=== PATIENT | male | born 1995 | race Caucasian/White ===

== ENCOUNTER → 2018-01-21 12:09 | Outpatient (CLI) | payer BC, SELFPAY ==
--- NOTE | 2018-01-21 12:15 | ECHOD_ITS ---
Reason For Study: Chest pain Procedure This was a 2D Doppler, Color Flow transthoracic echocardiogram. Exam performed in department. Left Ventricle Normal size and thickness. The estimated ejection fraction is 65 %. Normal diastology for age. No regional wall motion abnormalities noted. Right Ventricle Normal size and thickness. Normal systolic function. Atria Normal left atrium. Normal right atrium. Normal atrial septum. Mitral Valve The mitral valve is structurally normal. No prolapse or stenosis seen. Tricuspid Valve Normal tricuspid valve. Unable to estimate RV systolic pressure/pulmonary artery pressure due to technically difficult study. Aortic Valve Trisinus/trileaflet aortic valve. Normal aortic valve. Pulmonic Valve Normal pulmonic valve. Great Vessels Normal aortic root. Normal arch. Normal inferior vena cava. Inferior vena cava collapse with sniff. Pericardium/Pleural No pericardial effusion. MMode/2D Measurements & Calculations LVIDd: 5.0 cm IVSd: 0.99 cm Ao root diam: 2.9 cm LVIDs: 3.1 cm LVPWd: 1.1 cm LA dimension: 3.5 cm RVDd: 3.4 cm FS: 38.4 % LAV(MOD-bp): 45.0 ml LA A4 area: 17.3 cm2 RA A4 area: 14.9 cm2 LAV(MOD-bp) Indexed: 18.2 ml/m2 LAV(MOD-sp2): 37.0 ml LAV(MOD-sp4): 47.9 ml Doppler Measurements & Calculations MV E max kyle: 86.1 cm/sec Lat Peak E' Kyle: 18.1 cm/sec Med Peak E' Kyle: 13.4 cm/sec MV A max kyle: 58.9 cm/sec E/E' lat: 4.8 E/E' med: 6.4 MV E/A: 1.5 Ao V2 max: 126.7 cm/sec LV V1 max: 106.4 cm/sec PA V2 max: 110.1 cm/sec Ao max P.4 mmHg LV V1 max P.5 mmHg Interpretation Summary The estimated ejection fraction is 65 %. Normal diastology for age. Unable to estimate RV systolic pressure/pulmonary artery pressure due to technically difficult study. There is no comparison study available. Ordering Physician: Kalpesh Andrade Referring Physician: Jordy Henao M.D. Performed By: Lisa Jordan RDCS
--- NOTE | 2018-01-21 16:59 | STRESSREP ---
Stress Test Report Treadmill EKG: Resting EKG: Normal sinus rhythm, normal intervals, no evidence of previous myocardial infarction. Treadmill EKG: The patient exercise according to Willy protocol for 12 minutes and 30 seconds achieving a maximum workload of 14.3 0 METS. Resting heart rate was initially 84 beats a minute theresa to max of 1 93 bpm which represents 96% of the maximal age bracket heart rate. Resting blood pressure was 144/82 and theresa to maximum of 172/68. Test was terminated due to leg discomfort. During exercise the patient's heart rate increased as expected. Patient had no dynamic EKG changes to suggest ischemia. No arrhythmias noted. Conclusions normal adequate treadmill EKG. Negative for ischemia by EKG criteria. No anginal symptoms noted. No arrhythmias noted. Appropriate blood pressure response to exercise. Average exercise capacity for age. Test terminated due to leg discomfort. Patient tolerated the procedure well. No complications.
== END ==
PROVIDERS: Family Provider Family Medicine; PCP Family Medicine; Visit Provider Preventive Medicine Occupational Medicine
DX: R07.9 Chest pain, unspecified (principal); R06.2 Wheezing; R06.02 Shortness of breath
CPT/HCPCS: 93017; 93306

== ENCOUNTER 2023-07-01 18:16 | Emergency (ER) | payer OTHER, SELFPAY ==
[2023-07-01 18:17] VITALS: BP 150/95; PULSE 89; RESP 18; TEMP 36.6; O2SAT 99; BMI 31.4
--- NOTE | 2023-07-01 18:26 | EKG12_ITS ---
Test Reason : CP Blood Pressure : / mmHG Vent. Rate : 092 BPM Atrial Rate : 092 BPM P-R Int : 150 ms QRS Dur : 102 ms QT Int : 354 ms P-R-T Axes : 073 076 060 degrees QTc Int : 437 ms Normal sinus rhythm Normal ECG Confirmed by ELIZABETH GARCIA ([id number]), magazine editor KERRIE MEMBRENO ([id number]) on 08/07/2023 2:20:03 PM Referred By: STEPHANIE Confirmed By:ELIZABETH GARCIA
[2023-07-01 19:51] VITALS: BP 123/74; BP 130/77; BP 135/86; PULSE 77; PULSE 85
[2023-07-01 20:01] VITALS: BP 135/86; PULSE 85; RESP 16; O2SAT 99
--- NOTE | 2023-07-01 20:18 | EDS_ITS ---
HPI History of Present Illness Chief Complaint: Chest Pain Informant: patient Narrative Narrative: Patient is a 28-year-old male with history of what sounds like reactive airway, intermittent episodes of chest pain presenting with worsening chest pain. Patient states he has pain around his right anterior chest/shoulder and then up into his neck. He states he gets intermittent episodes of pain that are sharp in his chest rating to his back and into his neck. It seems to be worse with movement of his shoulder. States the pain lasted no more than 60 seconds at a time. Issues regarding the past 2 days. Denies any associated shortness of breath difficulty breathing. She notes that his shortness of breath which she saw his PCP for has been doing better. Finally he notes that he has been feeling a little lightheaded with some going on for about 2 months. He also notes he is been having some mild intermittent headaches. Denies any episodes of syncope. Notes that he does work at a [employer]. Has a family history of coronary artery disease but at an older age. Denies any swelling of his legs. Denies any hormonal use. Denies any recent travel. Denies a history of DVT or PE. No other complaints or concerns at this time. Not taking anything for symptoms prior to arrival. [facility] Medical History no medical history Allergy/AdvReac Type Severity Reaction Status Date / Time No Known Allergies Allergy Verified 07/01/23 18:19 Social History Smoking Status: Never smoker [facility] ED Constitutional Constitutional ED: Reports other Details: Lightheaded ; Denies chills or fever(s) Cardiovascular Cardiovascular: Reports chest pain; Denies palpitations or racing heartbeat Respiratory/Chest Respiratory/Chest: Reports dyspnea; Denies cough or dyspnea on exertion Gastrointestinal Gastrointestinal: Denies abdominal pain, nausea or vomiting Musculoskeletal Musculoskeletal: Denies arthralgias or myalgias Integumentary Denies rash Neurologic Neurologic: Reports headache(s); Denies weakness Psychiatric Psychiatric: Denies anxiety EXAM Physical Exam Const Vital Signs: 07/01/23 18:17 07/01/23 19:51 07/01/23 20:01 Temperature 97.8 F Temperature Source Temporal Pulse Rate 89 85 Pulse Rate [Lying] 77 Pulse Rate [Standing (for 1 minute prior to obtaining)] 85 Respiratory Rate 18 16 Blood Pressure 150/95 H 135/86 H Blood Pressure [Lying] 123/74 H Blood Pressure [Sitting (for 1 minute prior to obtaining)] 130/77 H Blood Pressure [Standing (for 1 minute prior to obtaining)] 135/86 H Blood Pressure Mean 113 102 Blood Pressure Mean [Lying] 90 Blood Pressure Mean [Sitting (for 1 minute prior to obtaining)] 94 Blood Pressure Mean [Standing (for 1 minute prior to obtaining)] 102 Pulse Ox 99 99 Oxygen Delivery Method Room Air Room Air Positive well nourished and well developed General Appearance ED: well developed and NAD HEENT Reports moist mucous membranes Eyes PERRL and EOMs intact bilaterally Eyes Narrative: Slight serous effusions with air-fluid level behind bilateral tympanic membranes. No associated erythema, bulging or retraction of the eardrums. Neck supple Chest Wall inspection of chest normal and palpation of chest normal Chest: Negative for tenderness Resp normal respiratory effort and clear to auscultation bilaterally Cardio regular rate, regular rhythm and no murmurs Extremity normal to inspection Extremity Narrative: Patient has slight increase of pain with internal rotation of outstretched right upper extremity General Extremety ED: Negative for edema General Extremity: Negative for edema Neuro oriented x3 Sensorium / Orientation: awake and alert Motor Exam: Negative for general weakness Psych mental status grossly normal Skin no rashes or lesions noted MDM MDM MDM Narrative Medical decision making narrative: Patient is evaluated for chest pain. The pain really seems muscle skeletal. It seems to be coming from his shoulder into his pec muscles and up into his neck. He is PE RC negative. His EKG is normal sinus rhythm. His significant other goes on to tell me that he did recently start working out his upper extremities. Recommend NSAID therapy for this. As far as his dizziness he does have signs of serious effusions bilaterally. I suspect that might be causing his vague dizziness and intermittent headaches. Patient tells me that he was previously on Flonase and an [id number] allergy medicine and it was helping but he stopped taking it. He has some chronic rhinorrhea. He is working on following up outpatient with an etl analyst developer. I encouraged him to get back on the Flonase and Zyrtec. Orthostatics are obtained which are normal. Patient states he recently had a chest x-ray at [facility]. Given that he is not hypoxic, has clear breath sounds and does not have pleuritic pain/concerns for pneumonia, pneumothorax or signs of fluid overload/heart failure/cardiac tamponade I do not think he requires a chest x-ray. He is agreeable with this. Is given referral outpatient for orthopedics as I do think his symptoms are more muscular in nature. Given return precautions. Discharged home in stable condition. Patient is offered analgesia in the emergency room but declines. Rhythm Strip Rhythm Strip: Sinus Rhythm Rate: 92 Ectopy: None EKG Initial EKG: Attestation: I personally reviewed and interpreted this EKG as follows: Interpretation: Sinus Rhythm Comments: Normal sinus rhythm at a rate of 92 bpm Normal axis Normal intervals Normal ST segment Discharge Plan Triage Chief Complaint: Chest Pain ED Provider: Marsha Brenner Dx/Rx/DC Orders Clinical Impression: ETD (eustachian tube dysfunction), Chest wall pain Instructions: ED Earache Without Infection (Adult), ED Chest Wall Strain Primary Care Provider: Yenny Tena Referrals: Yenny Tena DO [Primary Care Provider] - Chauncey Villanueva DO [Med Staff - Active Staff] - As Needed Activity Restrictions/Additional Instructions: Your EKG and vital signs were normal in the emergency room. I suspect the pain in your chest and neck is more associated with the muscles associate with your shoulder/rotator cuff. You been given referral for orthopedics for follow-up. I do recommend conservative management with ice, rest and anti-inflammatory such as ibuprofen. In addition you do have fluid behind your ears and I recommend restarting daily Flonase and an jygi-pjs-[id number] allergy medicine such as Zyrtec. Continue to follow-up with etl analyst developer as we discussed. If you pass out, have a progression of your symptoms, difficulty breathing or further concerns please return to the emergency room. At this time I think it is safe for you to continue to follow-up outpatient. Disposition Disposition: Home, Self Care
== END 2023-07-01 20:43 | disposition home or self-care (01) ==
PROVIDERS: Emergency Provider Emergency Medicine; Visit Provider Emergency Medicine
DX: H69.80 Other specified disorders of Eustachian tube, unspecified ear (principal); R07.89 Other chest pain
CPT/HCPCS: 93005; 99283

== ENCOUNTER 2025-05-16 20:21 | Emergency (ER) | payer BC, SELFPAY ==
[2025-05-16 20:22] VITALS: BP 176/109; PULSE 85; RESP 16; TEMP 36.6; O2SAT 98; BMI 31.8
[2025-05-16 20:24] VITALS: BP 181/89; O2SAT 99
--- NOTE | 2025-05-16 20:24 | EKG12_ITS ---
Test Reason : CP Blood Pressure : */* mmHG Vent. Rate : 80 BPM Atrial Rate : 80 BPM P-R Int : 152 ms QRS Dur : 104 ms QT Int : 374 ms P-R-T Axes : 58 48 41 degrees QTcB Int : 431 ms Normal sinus rhythm with sinus arrhythmia Normal ECG Confirmed by MARIOLA HAMMER, JASMINA ([id number]), business editor BHAVIN ANG ([id number]) on 05/17/2025 1:35:44 PM Referred By: ANTONIO Confirmed By: JASMINA GARNETT MD
--- NOTE | 2025-05-16 20:24 | EKG12_ITS ---
Test Reason : CP Blood Pressure : */* mmHG Vent. Rate : 80 BPM Atrial Rate : 80 BPM P-R Int : 152 ms QRS Dur : 104 ms QT Int : 374 ms P-R-T Axes : 58 48 41 degrees QTcB Int : 431 ms Normal sinus rhythm with sinus arrhythmia Normal ECG Confirmed by MARIOLA HAMMER, JASMINA ([id number]), photo editor BHAVIN ANG ([id number]) on 05/17/2025 1:35:44 PM Referred By: ANTONIO Confirmed By: JASMINA GARNETT MD
--- NOTE | 2025-05-16 20:50 | RAD_ITS ---
PROCEDURE: CHEST PA AND LATERAL 05/16/2025 REASON FOR EXAM: CHEST PAIN TECHNIQUE: CHEST PA AND LATERAL COMPARISON: None. FINDINGS: The heart is normal in size. The lungs are clear. No pleural effusion or pneumothorax. No acute osseous abnormalities. RAD/Chest PA and Lateral IMPRESSION: NO ACUTE FINDINGS. Reading Location: [place] [id number]
--- NOTE | 2025-05-16 20:50 | RAD_ITS ---
PROCEDURE: CHEST PA AND LATERAL 05/16/2025 REASON FOR EXAM: CHEST PAIN TECHNIQUE: CHEST PA AND LATERAL COMPARISON: None. FINDINGS: The heart is normal in size. The lungs are clear. No pleural effusion or pneumothorax. No acute osseous abnormalities. RAD/Chest PA and Lateral IMPRESSION: NO ACUTE FINDINGS. Reading Location: [place] [id number]
[2025-05-16 21:01] LABS: Hematocrit 42.2 % (40-54); Hemoglobin 14.7 g/dL (13.0-16.5); Immature Granulocytes Count 0.010 X10^3/uL (0.0-0.0); Mean Corp Hgb Conc 34.8 g/dL (32-36); Mean Corpuscular Volume 87.4 fL (80-94); Mean Platelet Vol. 9.6 fl (6.2-12.0); NRBC Flagged by Analyzer 0 % (0-5); Platelet Count 246 K/mm3 (150-450); RBC Distribution Width CV 12.4 % (11.6-14.6); RBC Distribution Width SD 39.8 fl (35.1-43.9); Red Blood Count 4.83 M/mm3 (4.6-6.2); White Blood Count 9.0 K/mm3 (4.4-11.0)
[2025-05-16 21:11] LABS: Anion Gap 11 (5-15); BUN 12 mg/dL (4-19); BUN/Creat Ratio 12.2 RATIO (10-20); Calcium,Total 9.4 mg/dL (7.6-11.0); Carbon Dioxide 23.7 mmol/L (21.0-32.0); Chloride 104 mmol/L (98-108); Estimated Creatinine Clearance 166.39 ml/min (50-250); Glucose 98 mg/dL (70-99); Potassium 3.8 mmol/L (3.3-5.1)
[2025-05-16 21:12] VITALS: BP 163/75; PULSE 80; RESP 16; O2SAT 99
--- NOTE | 2025-05-16 21:17 | EDS_ITS ---
HPI History of Present Illness Chief Complaint: Chest Pain Informant: patient Onset/Context/Timing Onset: Days (3-4) Activity at onset: sudden Timing: Intermittent Quality: Positive for Pressure Location: Substernal and - (Left arm) Worsened By: Nothing Relieved By: Nothing Narrative Narrative: Patient presents with chest pain that has been intermittent over the last 3 to 4 days. Patient states it comes on rather suddenly. Patient describes it as a pressure. Patient states the pain is over the substernal area and radiates into his left arm. Patient states nothing makes it better nothing makes it worse. Patient admits to some shortness of breath and lightheadedness. Patient also admits to some palpitations. Patient denies any nausea or vomiting. Patient denies any cough or diaphoresis. Patient denies any fevers or chills. CVD Risk Factors: Negative for Hypertension, Diabetes, Hypercholesterolemia, Family History 1' </=55 or Smoking PE Risk Factors: Negative for Recent Travel/Surgery, Recent Immobilization, Prior DVT or PE, Cancer or OCP + Smoking + >/=35 PFSH PFSH Medical History no medical history no medical history Home Medications ?Medication ?Instructions ?Recorded ?Last Taken ?Type NK 05/16/25 Unknown History Allergy/AdvReac Type Severity Reaction Status Date / Time No Known Allergies Allergy Verified 05/16/25 20:22 Surgical History no surgical history no surgical history Social History Smoking Status: Never smoker [facility] ED Constitutional Constitutional ED: Denies chills or fever(s) Eyes Eyes: Denies blurry vision or change in vision ENT ENT ED: Denies rhinorrhea or sore throat Cardiovascular Cardiovascular: Reports chest pain and palpitations Respiratory/Chest Respiratory/Chest: Reports dyspnea; Denies cough Gastrointestinal Gastrointestinal: Denies nausea or vomiting Genitourinary Genitourinary ED: Denies dysuria or hematuria Musculoskeletal Musculoskeletal: Reports back pain; Denies neck pain Integumentary Denies abscess or rash Neurologic Neurologic: Reports headache(s); Denies weakness Allergic/Immunologic Allergic/Immunologic ED: Denies mouth swelling or urticaria EXAM Physical Exam Const Vital Signs: 05/16/25 20:22 05/16/25 20:24 05/16/25 20:24 Temperature 98 F Temperature Source Oral Pulse Rate 85 Respiratory Rate 16 Respiratory Effort Blood Pressure 176/109 H 181/89 H Blood Pressure Mean 131 119 Pulse Ox 98 99 Oxygen Delivery Method Room Air Room Air 05/16/25 21:10 05/16/25 21:12 05/16/25 22:00 Temperature 98.1 F Temperature Source Oral Pulse Rate 80 73 Respiratory Rate 16 22 H Respiratory Effort Normal Blood Pressure 163/75 H 152/83 H Blood Pressure Mean 104 106 Pulse Ox 99 98 Oxygen Delivery Method Room Air Room Air 05/16/25 23:00 05/16/25 23:56 Temperature 98.1 F 98.1 F Temperature Source Oral Pulse Rate 72 66 Respiratory Rate 15 16 Respiratory Effort Blood Pressure 134/75 H 116/61 Blood Pressure Mean 94 79 Pulse Ox 99 98 Oxygen Delivery Method Room Air Positive well nourished and well developed General Appearance ED: well developed and NAD HEENT Reports moist mucous membranes Neck supple and no JVD Chest Wall palpation of chest normal Resp normal respiratory effort and clear to auscultation bilaterally Cardio regular rate and regular rhythm GI soft to palpation, non-tender and non-distended Neuro oriented x3, CN's II-XII intact bilaterally and no sensory deficits noted Sensorium / Orientation: awake and alert Motor Exam: strength 5/5 throughout Psych mental status grossly normal Heart Score History: Slightly/Non-Suspicious ECG: Normal Age: </= 45 years Risk Factors: No Risk Factors Troponin: </= Normal Limit Score: 0 MDM MDM MDM Narrative Medical decision making narrative: Differential diagnosis includes cardiac dysrhythmia, cardiac ischemia, pneumonia, bronchitis, gastroesophageal reflux disease, and anxiety. EKG will be obtained to assess for cardiac dysrhythmia and cardiac ischemia. Chest x-ray will be obtained to assess for pneumonia and bronchitis. CBC will be obtained to assess for leukocytosis and anemia. Basic metabolic profile will be obtained to assess for electrolyte abnormality renal function. High-sensitivity troponin will be obtained to assess for cardiac ischemia. History & Record Review Additional record(s) reviewed:: Prior ED visit Lab Data Attestation: I reviewed the patient's lab results. Lab results narrative: CBC was reviewed and was within normal limits. Basic metabolic profile was reviewed and was within normal limits. Initial high-sensitivity troponin was repeated and was less than 6. Repeat high-sensitivity troponin was reviewed and was less than 6. Labs: Laboratory Results - last 24 hr 06/30/25 06/30/25 20:29 22:20 WBC 9.0 RBC 4.83 Hgb 14.7 Hct 42.2 MCV 87.4 MCH 30.4 MCHC 34.8 RDW Std Deviation 39.8 RDW Coeff of Brayden 12.4 Plt Count 246 MPV 9.6 Immature Gran % (Auto) 0.100 Neut % (Auto) 59.8 Lymph % (Auto) 28.8 Gregg % (Auto) 9.1 Eos % (Auto) 2.0 Baso % (Auto) 0.2 Absolute Neuts (auto) 5.4 Absolute Lymphs (auto) 2.59 Nucleated RBC % 0 Sodium 139 Potassium 3.8 Chloride 104 Carbon Dioxide 23.7 Anion Gap 11 BUN 12 Creatinine 0.98 Estim Creat Clear Calc 166.39 Est GFR (MDRD) Non-Af 108 BUN/Creatinine Ratio 12.2 Glucose 98 Calcium 9.4 Troponin T High Sens < 6 Troponin T Hi Sens 2 Hr < 6 Radiography Chest X-Ray - ED: 2 View, Read by ED Physician, Read by Radiologist and No Acute Disease Diagnostic Testing: Clinical Impression(s) from Imaging Studies Chest X-Ray 05/16/25 20:50 IMPRESSION: NO ACUTE FINDINGS. Reading Location: [place] [id number] PA and lateral chest x-ray was obtained. There are 2 views. On my independent interpretation, lung herrera are clear. There is normal cardiac silhouette. Bony thorax is normal. There is no acute process noted. Radiologist also interpreted the x-ray and agrees. EKG Initial EKG: Attestation: I personally reviewed and interpreted this EKG as follows: Interpretation: Sinus Rhythm (80) and No Acute Injury Pattern Comments: EKG was obtained. On my independent interpretation, it showed a normal sinus rhythm with a rate of 80. SC interval, QRS interval, and QTc intervals were all normal. [place] was normal. There are no acute ST or T wave changes. Prior EKG tracings: available for review Prior: Unchanged (07/01/2023) Treatment and Re-Evaluation :: Patient was advised of his findings. Patient has a HEART score of 0. Patient was advised that this is low risk for acute cardiac event. Patient was instructed to follow-up with his primary care physician for further evaluation in 5 to 7 days. Patient was instructed to return if worse in any way. Patient understood and was agreeable with the plan. All questions were answered. Discharge Plan Triage Chief Complaint: Chest Pain ED Provider: Víctor Best Dx/Rx/DC Orders Clinical Impression: Chest pain, Elevated blood pressure reading without diagnosis of hypertension Instructions: ED Chest Pain, Uncertain Cause Prescriptions: No Action NK Primary Care Provider: Yenny Tena Referrals: Yenny Tena, [Primary Care Provider] - 5-7 Days Print Language: Citizen Of [place] Disposition Disposition: Home, Self Care Discharge Date/Time: 05/17/25 00:06
[2025-05-16 21:19] LABS: Troponin T High Sensitivity < 6 ng/L (<=22)
[2025-05-16 22:00] VITALS: BP 152/83; PULSE 73; RESP 22; TEMP 36.7; O2SAT 98
[2025-05-16 23:00] VITALS: BP 134/75; PULSE 72; RESP 15; TEMP 36.7; O2SAT 99
[2025-05-16 23:26] LABS: Troponin T High Sens 2 HR < 6 ng/L (<=22)
[2025-05-16 23:56] VITALS: BP 116/61; PULSE 66; RESP 16; TEMP 36.7; O2SAT 98
== END 2025-05-17 00:06 | disposition home or self-care (01) ==
PROVIDERS: Emergency Provider Emergency Medicine; Visit Provider Emergency Medicine
DX: R07.89 Other chest pain (principal); R00.2 Palpitations; R06.02 Shortness of breath; R42 Dizziness and giddiness; R03.0 Elevated blood-pressure reading, without diagnosis of hypertension
CPT/HCPCS: 71046; 80048; 84484; 85025; 93005; 99284; A4216

== ENCOUNTER 2025-08-28 12:23 | Emergency (ER) | payer BC, SELFPAY ==
[2025-08-28 12:24] VITALS: BP 118/104; PULSE 81; RESP 16; TEMP 36.6; O2SAT 98; BMI 30.9
--- NOTE | 2025-08-28 12:37 | ED.VIS.CHEST ---
HPI History of Present Illness Chief Complaint: Chest Pain Narrative Narrative: Patient is a 30-year-old male presenting to the emergency department for intermittent left-sided chest pain, shoulder blade pain and left antecubital pain. Patient states that he is had this before associated with his anxiety. He denies any family history of sudden cardiac . States he has been diagnosed with a cardiac murmur in the past but denies any other cardiac history. Denies any diabetes, hypertension or hypercholesterolemia diagnosis. Patient states the symptoms have been going on for the past 3 days more frequently but has had them for months associated with his anxiety. The only symptom he is endorsing on evaluation here is left antecubital pain. However states that the past 3 days he has had intermittent left-sided chest pain and left shoulder blade pain. Endorses intermittent shortness of breath as well. Denies fever, chills, cough, diaphoresis, vomiting, abdominal pain, lower extremity edema. Denies any history of DVT or PE. Recently traveled to [place] which was a 10-hour drive about 3 weeks ago. PFSH PFS Medical History Anxiety Non-smoker Home Medications ?Medication ?Instructions ?Recorded ?Last Taken ?Type NK 05/16/25 Unknown History Allergy/AdvReac Type Severity Reaction Status Date / Time No Known Allergies Allergy Verified 08/28/25 12:26 Social History Smoking Status: Never smoker ROS ROS ED ROS Narrative See HPI EXAM Physical Exam Narrative Exam Narrative: Vital signs: Reviewed General: Alert and oriented x 3. No acute distress HEENT: Head is normocephalic and atraumatic, sinuses nontender, pupils equal round and reactive. Nares are patent. Oropharynx and throat exams normal. Neck: Supple without lymphadenopathy nontender Cardiovascular: Regular rate and rhythm, no murmurs. No rubs or gallops. Normal S1 and S2. Radial and DP pulses are 2+ and symmetric throughout. Respiratory: Clear to auscultation bilaterally. No wheezes, rales, rhonchi Chest: No reproducible chest pain on exam Abdominal: Soft and nontender. Normal bowel sounds. No guarding or rebound. Nonsurgical abdomen Extremities: No lower extremity edema. No tenderness. No bruising. Normal range of motion. Normal sensation. Skin: No rash or redness. Neurological: Cranial nerves II through XII are grossly intact. Normal strength and sensation. Normal cerebellar function The rest of the physical exam is unremarkable Const Vital Signs: 08/28/25 12:24 08/28/25 12:47 08/28/25 13:17 Temperature 97.8 F Temperature Source Oral Pulse Rate 81 77 Respiratory Rate 16 17 Respiratory Effort Normal Blood Pressure 118/104 H 146/78 H Blood Pressure Mean 108 100 Pulse Ox 98 99 Oxygen Delivery Method Room Air Room Air 08/28/25 14:00 08/28/25 15:09 Temperature 97.8 F Temperature Source Pulse Rate 58 L 58 L Respiratory Rate 18 18 Respiratory Effort Blood Pressure 136/89 H 136/89 H Blood Pressure Mean 104 104 Pulse Ox 99 Oxygen Delivery Method Room Air MDM MDM MDM Narrative Medical decision making narrative: Patient is a 30-year-old male presenting to emergency department with intermittent left-sided chest pain, shoulder blade pain. Patient was seen and examined. Vitals are stable. Patient resting bed comfortably no acute distress. Differential includes but is not limited to: ACS, pneumonia, pneumothorax, less likely PE or aortic pathology however with patient's recent travel we will obtain a D-dimer EKG shows normal sinus rhythm with a sinus arrhythmia. There is no ischemic changes noted. No abnormal T wave inversions. CBC with no leukocytosis and normal hemoglobin. BMP with no significant abnormalities. Troponin and reflex are both below 6. D-dimer is negative. Chest x-ray was reviewed by myself. No opacities, pneumothorax or wide mediastinum. Radiology read in agreement. Patient and significant other at bedside were updated on the negative workup. Patient states he is had similar symptoms with his anxiety in the past. With a negative ACS workup including workup for PE and additional emergent causes of his chest pain think it is likely his anxiety. Recommended follow-up with his PCP as soon as possible. Patient discharged from the Emergency Department. I do not feel that the patient's evaluation reveals any acute reason for admission at this time. I instructed them to either follow-up with their primary care physician or promptly return to the Emergency Department for reevaluation should symptoms worsen or new symptoms develop. I explained what symptoms would indicate the need to return to the emergency department. Shared decision making was used. The patient voiced understanding of the treatment plan and is agreeable with it. Clinical impression Chest pain of unknown etiology History & Record Review Discussion w/independent historian: Patient and Significant other Lab Data Attestation: I reviewed the patient's lab results. Labs: Laboratory Results - last 24 hr 08/28/25 08/28/25 12:35 14:27 WBC 7.2 RBC 5.33 Hgb 16.1 Hct 46.7 MCV 87.6 MCH 30.2 MCHC 34.5 RDW Std Deviation 38.6 RDW Coeff of Brayden 12.0 Plt Count 240 MPV 9.4 Immature Gran % (Auto) 0.300 Neut % (Auto) 56.5 Lymph % (Auto) 32.1 [place] % (Auto) 8.6 Eos % (Auto) 2.2 Baso % (Auto) 0.3 Absolute Neuts (auto) 4.1 Absolute Lymphs (auto) 2.32 Nucleated RBC % 0 D-Dimer Quant (PE/DVT) < 0.27 L Sodium 139 Potassium 4.7 Chloride 103 Carbon Dioxide 25.7 Anion Gap 10 BUN 15 Creatinine 1.01 Estim Creat Clear Calc 157.95 Est GFR (MDRD) Non-Af 103 BUN/Creatinine Ratio 14.4 Glucose 104 H Calcium 9.9 Troponin T High Sens < 6 Troponin T Hi Sens 2 Hr < 6 Radiography Chest X-Ray - ED: 2 View, Read by ED Physician, Normal, No Acute Disease and No Infiltrates Diagnostic Testing: Clinical Impression(s) from Imaging Studies Chest X-Ray 08/28/25 13:00 IMPRESSION: Negative for acute cardiopulmonary disease. Reading Location: [facility] Discharge Plan Triage Chief Complaint: Chest Pain ED Provider: Rosalva Martines Dx/Rx/DC Orders Clinical Impression: Chest pain of unknown etiology Instructions: ED Chest Pain, Uncertain Cause Prescriptions: No Action NK Primary Care Provider: Yenny Tena Referrals: Yenny Tena, [Primary Care Provider, Family Practice] - As soon as possible Activity Restrictions/Additional Instructions: Your evaluation in the Emergency Department did not reveal any acute reason for admission. However, I want to emphasize that you may be early in the course of a disease process or illness even if it is not present. For this reason you should follow-up within 24 hours for reevaluation with either your primary care physician or if necessary back here in the Emergency Department. You should return to the Emergency Department immediately if your symptoms worsen or new symptoms develop. Print Language: Italian Disposition Disposition: Home, Self Care Discharge Date/Time: 08/28/25 15:10
--- NOTE | 2025-08-28 12:45 | EKG12_ITS ---
Test Reason : cp Blood Pressure : */* mmHG Vent. Rate : 86 BPM Atrial Rate : 86 BPM P-R Int : 144 ms QRS Dur : 102 ms QT Int : 354 ms P-R-T Axes : 71 77 53 degrees QTcB Int : 423 ms Normal sinus rhythm with sinus arrhythmia Normal ECG Confirmed by MARIOLA HAMMER, JASMINA ([id number]), managing editor KERRIE MEMBRENO ([id number]) on 08/30/2025 7:47:12 AM Referred By: Ug/er Confirmed By: JASMINA GARNETT MD
[2025-08-28 12:47] LABS: Hematocrit 46.7 % (40-54); Hemoglobin 16.1 g/dL (13.0-16.5); Immature Granulocytes Count 0.020 X10^3/uL (0.0-0.0); Mean Corp Hgb Conc 34.5 g/dL (32-36); Mean Corpuscular Volume 87.6 fL (80-94); Mean Platelet Vol. 9.4 fl (6.2-12.0); NRBC Flagged by Analyzer 0 % (0-5); Platelet Count 240 K/mm3 (150-450); RBC Distribution Width CV 12.0 % (11.6-14.6); RBC Distribution Width SD 38.6 fl (35.1-43.9); Red Blood Count 5.33 M/mm3 (4.6-6.2); White Blood Count 7.2 K/mm3 (4.4-11.0)
[2025-08-28 13:00] LABS: D-Dimer Quantitative (DVT/PE) < 0.27 FEU/ug/m (0.27-0.49)
--- NOTE | 2025-08-28 13:00 | RAD_ITS ---
PROCEDURE: CHEST PA AND LATERAL 08/28/2025 REASON FOR EXAM: CHEST PAIN TECHNIQUE: Procedure Code: RADCXR Modality: DX Procedure: CHEST PA AND LATERAL COMPARISON: April 2025. FINDINGS: Hardware and support lines: None. Heart: Negative. Lungs: Negative for infiltrates, or pulmonary edema. Pleura: No pleural thickening. No pleural effusion. Mediastinum and aorta: Negative for hilar adenopathy. Normal thoracic aorta. Bones: Age-appropriate degenerative changes of the spine. Other: Remainder of the exam negative. RAD/Chest PA and Lateral IMPRESSION: Negative for acute cardiopulmonary disease. Reading Location: [id number]
[2025-08-28 13:05] LABS: Troponin T High Sensitivity < 6 ng/L (<=22)
[2025-08-28 13:06] LABS: Anion Gap 10 (5-15); BUN 15 mg/dL (4-19); BUN/Creat Ratio 14.4 RATIO (10-20); Calcium,Total 9.9 mg/dL (7.6-11.0); Carbon Dioxide 25.7 mmol/L (21.0-32.0); Chloride 103 mmol/L (98-108); Estimated Creatinine Clearance 157.95 ml/min (50-250); Glucose 104 mg/dL (70-99); Potassium 4.7 mmol/L (3.3-5.1)
[2025-08-28 13:17] VITALS: BP 146/78; PULSE 77; RESP 17; O2SAT 99
[2025-08-28 14:00] VITALS: BP 136/89; PULSE 58; RESP 18
[2025-08-28 14:50] LABS: Troponin T High Sens 2 HR < 6 ng/L (<=22)
[2025-08-28 15:09] VITALS: BP 136/89; PULSE 58; RESP 18; TEMP 36.6; O2SAT 99
== END 2025-08-28 15:10 | disposition home or self-care (01) ==
PROVIDERS: Emergency Provider Student in an Organized Health Care Education/Training Program; Visit Provider Student in an Organized Health Care Education/Training Program
DX: R07.9 Chest pain, unspecified (principal); M25.512 Pain in left shoulder; R06.02 Shortness of breath; F41.9 Anxiety disorder, unspecified
CPT/HCPCS: 71046; 80048; 84484; 85025; 85379; 93005; 99285; A4216